=== PATIENT | female | born 2000 | race Caucasian/White ===

== ENCOUNTER 2021-08-06 09:07 | Outpatient (REF) | payer SELFPAY ==
--- NOTE | 2021-08-06 08:15 | PAPFT_PTH ---
PATIENT: Efraín Baker LOC: [facility] U#:[id number] AGE/SX: 20/F ROOM: RE08/06/[address]: Mat Moore : 2000 BED: DIS: 08/06/2021 SPEC #: [id number] RECD: 08/07/21 12:42 STATUS: SHAGUFTA REGuilherme #: [id number] RUDI: 08/06/21 08:[address]: Penny Moore DEPT: [facility] Cytology RECD BY: Myrtle Alfaro ENTERED: 08/07/21 12:42 SP TYPE: PAPFT CHELITA DR: None Tissues: 1 - CX/ENDOCX FOR PAP SMEARS Procedures: PAP THIN PREP/[facility] Screening Comments: [id number]
== END 2021-08-06 09:08 | disposition home or self-care (01) ==
LOC: NCHCN 09:07
PROVIDERS: Visit Provider Nurse Practitioner Family
DX: Z12.4 Encounter for screening for malignant neoplasm of cervix (principal); Z01.419 Encounter for gynecological examination (general) (routine) without abnormal findings
CPT/HCPCS: 88142